=== PATIENT | male | born 1990 | race African-American/Black ===

== ENCOUNTER 2017-11-06 02:34 | Emergency (ER) | payer SELFPAY ==
[~2017-11-06] VITALS: Ht 160 cm; Wt 66.0 kg
[2017-11-06 04:55] VITALS: BP 144/68
== END 2017-11-06 04:55 | disposition home or self-care (01) | DRG 103 ==
LOC: ED 02:34
DX: R51 Headache (principal); I48.91 Unspecified atrial fibrillation

== ENCOUNTER 2018-01-07 13:50 | Emergency (ER) | payer SELFPAY ==
[~2018-01-07] VITALS: Ht 160 cm; Wt 66.0 kg
[2018-01-07 15:17] LABS: URINE BILIRUBIN - DIPSTICK NEGATIVE (NEGATIVE); URINE BLOOD DIPSTICK NEGATIVE (NEGATIVE); URINE COLOR YELLOW; URINE GLUCOSE - DIPSTICK NEGATIVE (NEGATIVE); URINE KETONE NEGATIVE (NEGATIVE); URINE LEUK ESTERASE NEGATIVE (NEGATIVE); URINE NITRITE - DIPSTICK NEGATIVE (Negative); URINE PROTEIN - DIPSTICK NEGATIVE (NEG-TRACE)
[2018-01-07 15:18] LABS: HEMATOCRIT 40.5 % (39.0-50.0); IMMATURE GRANULOCYTES 0.2 % (0.0-1.0); MEAN CELL VOLUME 96.9 fL CALC (80.0-100.0); MEAN CORPUSCULAR HGB 33.5 pG CALC (26.0-32.0); MEAN CORPUSCULAR HGB CONC 34.6 g/L CALC (32.0-36.0); NEUT# 4.96 thou/uL (1.82-7.42); RED BLOOD COUNT 4.18 mill/uL (4.70-6.10); RED CELL DISTRI WIDTH 12.1 % (11.5-15.5)
[2018-01-07 15:20] LABS: BARBITURATES NEGATIVE (NEGATIVE); COCAINE NEGATIVE (NEGATIVE); METHADONE NEGATIVE (NEGATIVE); OXCYCODONE NEGATIVE (NEGATIVE); TETRAHYDROCANNABIONOL NEGATIVE (NEGATIVE); TRICYLIC ANTIDEPRESSANTS NEGATIVE (NEGATIVE); URINE CLARITY HAZY
[2018-01-07 15:35] LABS: ALBUMIN 4.3 g/dL (3.2-5.0); ALKALINE PHOSPHATASE 54 u/l (38-126); ANION GAP 15 (6-22 (CALC)); BILIRUBIN, TOTAL 0.5 mg/dL (0.0-1.4); BUN 10 mg/dL (9-20); BUN/CREATININE RATIO 11 (12-20 (CALC)); CARBON DIOXIDE 27 mmol/l (22-30); CHLORIDE 103 mmol/l (95-108); CREATININE 0.9 mg/dL (0.7-1.3); GFR > 60 ML/MIN (>=60 (CALC)); GFR FOR AFR.AMER. > 60 ML/MIN (>=60 (CALC)); SGOT/AST 16 u/l (17-59); SGPT/ALT 34 u/l (21-72); SODIUM 141 mmol/l (137-146)
[2018-01-07 16:03] VITALS: BP 122/73
== END 2018-01-07 16:06 | disposition left against medical advice (07) | DRG 103 ==
LOC: ED 13:50
PROVIDERS: Emergency Medicine
DX: R51 Headache (principal); I48.91 Unspecified atrial fibrillation; F17.210 Nicotine dependence, cigarettes, uncomplicated; Z91.19 Patient's noncompliance with other medical treatment and regimen